=== PATIENT | female | born 1985 | race Caucasian/White ===

== ENCOUNTER 2018-09-02 22:26 | Emergency (ER) | payer OTHER ==
[~2018-09-02] VITALS: Ht 165.1 cm; Wt 74.8 kg
[~2018-09-02 22:26] MED LIST: NORCO 5-325 TA1 EACH PO; ZPAK PO
[2018-09-02] MEDS ORDERED: NORCO 5-325 TA1 EAC1 PO (23:20)
[2018-09-02 23:33] VITALS: BP 127/76
== END 2018-09-02 23:33 | disposition home or self-care (01) ==
LOC: M.ERS 22:26
DX: M25.561 Pain in right knee (principal); R11.2 Nausea with vomiting, unspecified; F17.210 Nicotine dependence, cigarettes, uncomplicated; Z88.5 Allergy status to narcotic agent; Z88.6 Allergy status to analgesic agent; Z88.8 Allergy status to other drugs, medicaments and biological substances; Z90.49 Acquired absence of other specified parts of digestive tract